=== PATIENT | female | born 1990 | race Caucasian/White ===

== ENCOUNTER 2023-10-03 07:46 | Inpatient (IN) ==
--- NOTE | 2023-10-03 08:43 | History & Physical Report ---
Date of Service October 03, 2023 Assessment & Plan (1) Encounter for induction of labor: (2) Need for rhogam due to Rh negative mother: Plan Will admit patient to L&D for IOL due to post dates VSS FHT cat 1 Pitocin as needed Epidural prn Rh negative mother GBS neg; RI Patient in agreement Admission and Anticipated Discharge Date Admission Date: October 03, 2023 History of Present Illness Chief Complaint: IOL Primary Care Provider: NO PCP Karen is a 33 y/o female with no significant PMHx who is currently at IUP 41 2/7 WGA with an BRAIN 09/24/23 as determined by certain LMP who is here for IOL due to post-dates. (-) contractions (+) movement (-) fluid loss (-) bloody show External FHT and external uterine monitors used * Category 1 tracing * Moderate FHT variability. Had regular appointments since 1st trimester. OB Labs: Blood Type A Negative 02/13/23 Antibody Screen NEGATIVE 07/03/23 Hemoglobin 12.7 g/dl (12.0-16.0) 07/03/23 Hematocrit 37.5 % (37.0-47.0) 07/03/23 Mean Corpuscular Volume 87.6 fL (80.0-100.0) 02/13/23 Platelet Count 223 K/uL (130-400) 02/13/23 Rubella IgG Antibody Immune (Immune) 02/13/23 Rapid Plasma Reagin Nonreactive (Nonreactive) 02/13/23 Hepatitis B Surface Antigen. NON-REACTIVE (NON-REACTIVE) 02/13/23 Hepatitis C Antibody (EIA) NON-REACTIVE (NON-REACTIVE) 02/13/23 HIV (1&2) Ag and Ab Confirmation NON-REACTIVE (NON-REACTIVE) 02/13/23 Glucose 1 Hour 50 gm Load 110 mg/dl (70-130) 07/03/23 Maternal Serum Alpha Fetoprotein 36.2 ng/mL 04/10/23 OB Optional Labs: Chlamydia trachomatis RNA Not Detected (NotDetected) 02/13/23 Neisseria gonorrhoeae RNA Not Detected (NotDetected) 02/13/23 Alpha Fetoprotein Triple Screen SEE NOTE 04/10/23 Labs Reviewed: Carrier screening-negative--mln cfdna-low risk--mln afp neg--akh Allergies Allergy/AdvReac Type Severity Reaction Status Date / Time No Known Allergies Allergy Verified 10/02/23 11:50 Home Medications Medication Instructions Recorded Confirmed Type 21-iron fu-folic acid 1 tab PO 1XD 02/06/23 10/03/23 History [ Complete] Patient History Medical History History of chicken pox Ovarian teratoma COVID-19 (07/2021) Surgical History H/O laparoscopy L ovarian teratoma removal Family History Mother Breast cancer Aunt Breast cancer Denies family history of Ovarian cancer Colorectal cancer Social History Smoking Status: Never smoker Second Hand Exposure: No; Do You Dip or Chew Tobacco: No; Hx Alcohol Use: No Hx Substance Use: No Preferred Language: German Communication Ability: Effective 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 Beliefs That Will Affect Care: None marital status: marital status details: Yvon Vega (34) [phone] Current Living Situation: Spouse Current Living Situation Comment: Pt lives with and cat current occupational status: employed 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 Other Information That Helps Us Care for You: No Feels Safe at Home: Yes Safety Concerns: Feels Safe At This Time Diet Comment: regular diet; milk bothers her and avoids dairy Physical Activity Frequency: 5-6 Times per Week Physical Activity Frequency Comment: [place], HIT Assistive Devices: None BLOOD BANK LABORATORY TECHNICIAN History Last menstrual period: Yes Menstrual reliability: definite Flow: normal Menstrual regularity: regular Monthly: Yes Age at menarche: 11 On control pills at conception: No Date of positive home test: 01/14/23 Menstrual history comments: cycles 25 days Details: last pap 04/19/22 Review of Systems no fever, no chills and no sweats Denies changes in vision. Denies shortness of breath or respiratory difficulty. no chest pain and no palpitations no dysuria no headache(s) Physical Exam Physical Exam: General: Alert, oriented x3. Afebrile. No acute distress. Eyes: Pupils equal and reactive to light bilaterally. Extraocular movement intact bilaterally. Cardiac: Regular rate and rhythm, no murmurs/rubs/gallops. Respiratory: Clear to auscultation bilaterally a/p, no wheezes/rales/rhonchi. No increased work of breathing. Symmetrical chest rise. No respiratory distress. Abdomen: Gravid; FHR baseline of 140-145 bpm; vertex position Pelvic: 50 / -[address] Perodmo Lower Extremities: No lower extremity edema or swelling. No deep calf pain. Bandar's negative bilaterally Results & Data Vital Signs (Past 12 Hours) Vital Signs Temp Pulse Resp BP O2 Del Method 10/03/23 08:19 36.6 C 16 Room Air 10/03/23 07:56 81 126/69 Supervising Physician Co-Signing Physician Notes Resident Physician Supervision Note: I interviewed and examined the patient. Discussed with Dr. Kay and agree with findings and plan as documented in the note. Any exceptions or clarifications are listed here: 33yo @ 41 08/23, Rh neg, AMA. IOL for postdates. Taylor bulb placed this morning - 35cc sterile water, tolerated well. Will start pitocin. Reviewed plan. Documented By: Leah Perdomo,
[2023-10-03] MEDS ORDERED: LIDOCAINE 1% LOCAL 20 ML VIAL INFIL PRN (09:21)
[2023-10-03] MEDS ORDERED: OXYTOCIN 30 UNITS/NSS 30 UNITS/500 ML BAG IV PRN ×2 (09:21→22:22)
[2023-10-03] MEDS: LACTATED RINGER'S 1,000 ML IV PRN (09:55)
[2023-10-03] MEDS: OXYTOCIN 30 UNITS/NSS 30 UNITS/500 ML BAG IV PRN (10:07)
[2023-10-03 10:11] LABS: Hematocrit (blood only) 38.7 % (37.0-47.0); Hemoglobin 13.4 g/dl (12.0-16.0); Mean Corpuscular Hemoglobin 29.8 pg (25.0-34.0); Mean Corpuscular Hgb Conc 34.6 g/dL (32.0-36.0); Mean Platelet Volume 11.4 fL (9.4-12.4); Platelet Count 142 K/uL (130-400); RDW Coefficient of Variation 13.2 % (11.5-14.5); RDW Standard Deviation 40.6 fL (36.4-46.3); White Blood Count 9.18 K/ul (4.8-10.8)
[2023-10-03] MEDS ORDERED: fentaNYL citrate PF 100 MCG/2 ML VIAL ONE (16:27)
[2023-10-03] MEDS ORDERED: SODIUM CHLORIDE 0.9% PF INJ 10 ML VIAL ONE (16:28)
--- NOTE | 2023-10-03 16:36 | Anesthesiology Consultation ---
Date of Service October 03, 2023 Assessment & Plan Chart Review Chart Review: Acceptable Risk for Labor Epidural Consults Requested none ASA ASA2 Proposed Anesthesia Anesthesia Type: Labor Epidural Risk / Benefits Reviewed With: PT / POA / Parent / Guardian, Accepts Plan and Informed Consent Obtained History Height/Weight Height: 5 ft 4 in Weight: 73.028 kg Allergies Allergy/AdvReac Type Severity Reaction Status Date / Time No Known Allergies Allergy Verified 10/02/23 11:50 Medications Home Medications Medication Instructions Recorded Confirmed Last Taken 21-iron fu-folic acid 1 tab PO 1XD 02/06/23 10/03/23 10/01/23 07:00 [ Complete] Active Medications Generic Name Dose Route Start Last Admin Trade Name Freq PRN Reason Stop Dose Admin Oxytocin 30 units in 500 mls @ 17 mls/hr 10/03/23 09:21 10/03/23 15:43 Pitocin 30 Units/Nss IV 10/05/23 09:20 1.02 units/hr .Q24H PRN 17 mls/hr Labor Induction/Augmentation Titration Protocol 1.02 UNITS/HR Lactated Ringer's 1,000 mls @ 125 mls/hr 10/03/23 09:21 10/03/23 16:32 Lr IV 10/05/23 09:20 999 mls/hr .Q8H PRN Administration L&D Protocol Protocol Past Medical History Medical History History of chicken pox Ovarian teratoma COVID-19 (07/2021) Exercise / Class Metabolic Activity II 4-5 Yardwork/Stairs/Walk up hill Past Family History Family History Mother Breast cancer Aunt Breast cancer paternal aunt x 2 Denies family history of Ovarian cancer Colorectal cancer Past Surgical History Surgical History H/O laparoscopy L ovarian teratoma removal Past Anesthesia History No Hx of Anesthesia Complications and No Family Hx of Anesthesia Complications History of PONV No Hx of PONV and No Hx of Motion Sickness Social History Smoking Status: Never smoker Do You Dip or Chew Tobacco: No Hx Alcohol Use: No Hx Substance Use: No substance use type: does not use Physical Exam Vital Signs Last Vital Signs Temp 98.1 F 10/03/23 15:20 Pulse 84 10/03/23 15:56 Resp 18 10/03/23 16:00 BP 122/80 10/03/23 15:56 O2 Del Method Room Air 10/03/23 08:19 ENMT Mouth: no dentition abnormality Thyromental Distance: > or= 3.5 Finger Breadths Mallampati Class: II Neck normal visual inspection Respiratory normal respiratory effort Auscultation: lungs clear to auscultation bilaterally Cardiovascular Rate/Rhythm: regular rate and regular rhythm Testing Laboratory Results 10/03/23 09:40
[2023-10-03] MEDS: fentANYL 2 MCG/ML BUPIVacaine 0.125%-NSS 100ML BAG ONE (16:56)
[2023-10-03] MEDS ORDERED: ePHEDrine sulfate 50 MG/ML AMP IV PRN (16:57)
[2023-10-03] MEDS ORDERED: ONDANSETRON INJ 2 MG/ML 2 ML VIAL IV PRN (16:57)
[2023-10-03] MEDS ORDERED: fentANYL 2 MCG/ML BUPIVacaine 0.125%-NSS 100ML BAG EPI PRN (16:57)
[2023-10-03] MEDS ORDERED: NALOXONE HCL 0.4 MG/1 ML VIAL/CARP IV PRN (16:57)
[2023-10-03] MEDS ORDERED: ROPIVACAINE 0.5% PF 5 MG/ML 20 ML VIAL EPI PRN (16:57)
[2023-10-03] MEDS ORDERED: NALOXONE HCL 1 MG in SODIUM CHLORIDE 0.9% 1,000 ML IV PRN (16:57)
[2023-10-03] MEDS ORDERED: LIDOCAINE 2% MPF LOCAL 5 ML VIAL EPI PRN (16:57)
[2023-10-03] MEDS ORDERED: diphenhydrAMINE 50 MG/ML VIAL IV PRN (16:57)
[2023-10-03] MEDS ORDERED: SODIUM CHLORIDE 0.9% PF INJ 10 ML VIAL EPI PRN (16:57)
[2023-10-03] MEDS ORDERED: NALBUPHINE HCL 5 MG in SYRINGE 0 ML IV PRN (16:57)
[2023-10-03] MEDS: LIDOCAINE 2%/EPINEPHRINE 1:200,000 20 ML PF ONE (17:00)
[2023-10-03] MEDS: BUPIVACAINE 0.25% PF 30 ML VIAL ONE (17:00)
[2023-10-03] MEDS: LIDOCAINE 2%/EPINEPHRINE 1:200,000 20 ML PF EPI STA (17:23)
[2023-10-03] MEDS: BUPIVACAINE 0.25% PF 30 ML VIAL EPI STA (17:23)
[2023-10-03] MEDS: SODIUM CHLORIDE 0.9% PF INJ 10 ML VIAL EPI STA (17:23)
[2023-10-03] MEDS: fentaNYL citrate PF 100 MCG/2 ML VIAL EPI STA (17:23)
[2023-10-03] MEDS ORDERED: NURSING L&D Epidural Breakthrough Pain Update ONE (17:43)
[2023-10-03] MEDS: fentaNYL citrate PF 100 MCG/2 ML VIAL EPI PRN (18:28)
[2023-10-03] MEDS: BUPIVACAINE 0.25% PF 30 ML VIAL EPI PRN (18:30)
--- NOTE | 2023-10-03 18:43 | Anesthesia Procedure Note ---
Date of Service October 03, 2023 Anesthesia Epidural Re-Dose Vital Signs Temp Pulse Resp BP Pulse Ox O2 Del Method 98.2 F 85 18 125/71 100 Room Air 10/03/23 17:00 10/03/23 18:40 10/03/23 18:30 10/03/23 18:39 10/03/23 18:40 10/03/23 08:19 Notes Pain Intensity: 7 Dilatation (cm): 10.0 Effacement (%): 100 Called by nursing to evaluate epidural as the patient is having increased pain. The epidural was re-dosed with the following medications after negative aspiration of the epidural catheter for CSF/HEME. 3mL of 0.25% Bupivacaine and 75 mcg fentanyl After Epidural Re-Dose Mental Status: alert / awake / arousable Pain: improving with treatment Airway Patency, RR, SpO2: stable & adequate BP & HR: stable & adequate
--- NOTE | 2023-10-03 20:45 | Labor Progress Brief Note ---
Date of Service October 03, 2023 Subjective Comfortable with epidural. Pushing in [id number]. FHT was Cat 1, then had a deceleration that was relieved by repositioning into hands/knees, and pitocin stopped and O2 applied. [place] Q 3-4 Continue pushing. recovery successful, will plan to restart pitocin when able. Assessment & Plan Admission and Anticipated Discharge Date Admission Date: October 03, 2023 Results & Data Vital Signs (Past 12 Hours) Vital Signs Temp Pulse Resp BP Pulse Ox O2 Del Method 10/03/23 20:40 97 H 100 10/03/23 20:35 94 H 100 10/03/23 20:30 85 99 10/03/23 20:29 105 H 92 10/03/23 20:25 107 H 96 10/03/23 20:24 69 111/71 10/03/23 20:20 93 H 100 10/03/23 20:15 98 H 99 10/03/23 20:10 94 H 100 10/03/23 20:07 91 H 108/68 10/03/23 20:05 83 100 10/03/23 20:00 84 18 100 10/03/23 19:55 89 98 10/03/23 19:53 83 106/63 10/03/23 19:52 90 88 L 10/03/23 19:50 89 99 10/03/23 19:45 94 H 99 10/03/23 19:40 92 H 100 10/03/23 19:35 36.6 C 87 99 10/03/23 19:30 95 H 18 100 10/03/23 19:25 81 100 10/03/23 19:23 87 117/60 10/03/23 19:20 78 99 10/03/23 19:15 89 99 10/03/23 19:10 Room Air 10/03/23 19:10 84 100 10/03/23 19:08 20 10/03/23 19:08 20 10/03/23 19:07 84 122/55 L 10/03/23 19:05 100 10/03/23 19:05 95 H 10/03/23 19:05 160 H 122/63 10/03/23 19:03 90 116/61 10/03/23 19:01 93 H 104/69 91 10/03/23 19:00 101 H 18 98 10/03/23 18:55 89 168/61 H 98 10/03/23 18:53 83 106/73 10/03/23 18:51 87 114/65 10/03/23 18:50 79 124/60 100 10/03/23 18:47 95 H 88 L 10/03/23 18:45 73 120/64 100 10/03/23 18:43 81 124/71 10/03/23 18:41 85 124/94 10/03/23 18:40 85 100 10/03/23 18:39 76 125/71 10/03/23 18:37 77 125/78 10/03/23 18:35 98 10/03/23 18:35 76 10/03/23 18:35 82 129/86 10/03/23 18:33 65 121/78 10/03/23 18:31 83 130/77 10/03/23 18:30 77 18 98 10/03/23 18:26 84 144/85 H 10/03/23 18:25 77 99 10/03/23 18:20 76 98 10/03/23 18:15 75 99 10/03/23 18:13 88 125/78 10/03/23 18:10 79 100 10/03/23 18:05 75 98 10/03/23 18:00 80 20 99 10/03/23 17:56 97 H 143/95 H 10/03/23 17:55 91 H 99 10/03/23 17:51 87 135/86 10/03/23 17:50 99 H 99 10/03/23 17:46 97 H 138/90 10/03/23 17:45 93 H 98 10/03/23 17:42 83 146/98 H 10/03/23 17:40 87 98 10/03/23 17:38 85 161/67 H 10/03/23 17:36 84 193/76 H 10/03/23 17:35 90 99 10/03/23 17:30 20 10/03/23 17:30 20 10/03/23 17:30 92 H 20 100 10/03/23 17:25 80 100 10/03/23 17:23 75 157/92 H 10/03/23 17:21 86 141/82 H 10/03/23 17:20 98 10/03/23 17:20 83 10/03/23 17:20 82 134/82 10/03/23 17:18 81 144/82 H 10/03/23 17:15 80 119/65 99 10/03/23 17:13 77 116/63 10/03/23 17:12 83 126/75 10/03/23 17:10 85 100 10/03/23 17:09 84 144/71 H 10/03/23 17:07 73 145/67 H 10/03/23 17:05 70 146/67 H 100 10/03/23 17:04 76 133/61 10/03/23 17:01 83 149/81 H 10/03/23 17:00 36.8 C 81 18 99 10/03/23 16:59 82 137/86 10/03/23 16:57 91 H 144/90 H 10/03/23 16:55 93 H 150/94 H 100 10/03/23 16:53 100 H 146/83 H 10/03/23 16:51 96 H 142/83 H 10/03/23 16:50 100 10/03/23 16:50 83 10/03/23 16:50 88 132/77 10/03/23 16:47 75 131/80 10/03/23 16:45 74 131/76 99 10/03/23 16:43 82 129/88 10/03/23 16:41 79 121/88 10/03/23 16:40 84 100 10/03/23 16:39 71 115/84 10/03/23 16:35 83 100 10/03/23 16:00 18 10/03/23 16:00 18 10/03/23 15:56 84 122/80 10/03/23 15:20 16 10/03/23 15:20 36.7 C 16 10/03/23 15:00 18 10/03/23 15:00 18 10/03/23 14:58 78 120/83 10/03/23 14:30 16 10/03/23 14:30 16 10/03/23 14:00 18 10/03/23 14:00 18 10/03/23 13:57 70 111/75 10/03/23 13:30 18 10/03/23 13:30 18 10/03/23 12:57 74 123/82 10/03/23 12:30 16 10/03/23 12:30 16 10/03/23 12:01 62 117/72 10/03/23 12:00 18 10/03/23 12:00 18 10/03/23 11:13 18 10/03/23 11:13 36.7 C 18 10/03/23 11:00 18 10/03/23 11:00 18 10/03/23 10:57 74 121/82 10/03/23 10:30 16 10/03/23 10:30 16 10/03/23 10:00 18 10/03/23 10:00 18 10/03/23 09:56 59 L 117/78 10/03/23 09:30 18 10/03/23 09:30 18 10/03/23 08:57 65 129/62 Coding Level of Care Code None
--- NOTE | 2023-10-03 22:19 | Delivery Summary ---
Vaginal Delivery Summary Date of Service October 03, 2023 Vaginal Delivery Summary and 3rd Degree LAC Vaginal Delivery Summary: Pre-delivery diagnoses: 33yo @ 41 2/7, IOL postdates, AMA, Rh negative Post-delivery diagnoses: same Procedure: spontaneous vaginal delivery Surgeon: Leah Perdomo DO Complications: none Findings: Viable male . Apgars: 8/9 . Weight pending, please see nursery records Estimated blood loss: 500ml Description of delivery: The patient progressed to complete with epidural anesthesia. She then began to push. She spontaneously vaginally delivered a viable from the cephalic presentation. The head delivered in FAIZA position. Nuchal x 1, easily reduced. The anterior shoulder delivered, followed by the posterior shoulder, followed by the body. The baby was placed on mother's abdomen and a spontaneous cry was heard. Delayed cord clamping was employed, and the cord was doubly clamped and cut. Cord blood was obtained. During active management of the 3rd stage of labor, the umbilical cord avulsed. Manual extraction of the placenta in pieces, sweep was performed with Banjo curette and 1g TXA was given. Re-exam of uterine cavity revealed no remaining placental fragments. The uterus and vagina were swept of clots and debris. IV pitocin was given. The uterus became firm. The cervix, vagina, and perineum were inspected and a 3rd degree perineal laceration was noted and repaired. The anal sphincter was intact, but the fascia was - this was reapproximated with 3-0 Chromic. The remaining repair was completed with 3-0 Vicryl in standard fashion. Excellent hemostasis was observed. The mother and baby are recovering in stable and good condition in the room. Sponge, needle and instrument counts were correct x 2. Leah Perdomo DO [facility] Vaginal Delivery Charge Vaginal Delivery Codes: 70010 global code for the antepartum, delivery, and post- Delivery Type Details: and 3rd Degree LAC
[2023-10-03] MEDS ORDERED: HYDROCORTISONE ACETATE 25 MG SUPP PR PRN (22:22)
[2023-10-03] MEDS: TRANEXAMIC ACID / 0.7% NACL 1,000 MG/100 ML BAG IV STA (22:44)
[2023-10-03] MEDS: BENZOCAINE 20% SPRY 85 APPLN/85 GM CAN EXT PRN (22:44)
[2023-10-03] MEDS: IBUPROFEN 600 MG TAB PO PRN (22:45)
[2023-10-03] MEDS: ceFAZolin 1000MG 1,000 MG/7.5 ML SYR IV SCH (22:45)
[2023-10-03] MEDS: DIPHTHER/TETAN/PERTUS Vaccine (Tdap, Adol/Adult) 0.5mL IM ONE (23:03)
[2023-10-03] MEDS: ePHEDrine sulfate 50 MG/ML AMP ONE (23:03)
--- NOTE | 2023-10-03 23:34 | Anesthesia Procedure Note ---
Date of Service October 03, 2023 Anesthesia Post Epidural Note Vital Signs Vital Signs: Temp Pulse Resp BP Pulse Ox O2 Del Method 97.9 F 85 18 102/64 98 Room Air 10/03/23 19:35 10/03/23 23:22 10/03/23 22:20 10/03/23 23:22 10/03/23 22:15 10/03/23 19:10 Pain Intensity Abdomen: Pain Intensity: 0 Notes Mental Status: alert / awake / arousable and participated in evaluation Nausea / Vomiting: adequately controlled Pain: adequately controlled Airway Patency, RR, SpO2: stable & adequate BP & HR: stable & adequate Hydration State: stable & adequate Neuraxial Anesthesia: was administered and sensory block is resolving Anesthetic Complications: no major complications apparent and Pt Satisfied with anesthetic care Epidural: Removed without complications and With tip intact
--- NOTE | 2023-10-04 07:01 | Obstetrical Progress Note ---
Date of Service <Maty Kay MD - Last Filed: 10/04/23 07:01> October 04, 2023 Assessment & Plan <Maty Kay MD - Last Filed: 10/04/23 07:01> (1) Need for rhogam due to Rh negative mother: (2) Encounter for assessment: Plan Patient with the above mentioned history and findings was evaluated at bedside and found awake, alert, oriented in all spheres, afebrile, and in no acute distress. Vital signs showed no fever and blood pressures remained stable. Her blood type is A negative. Will consider Rhogam administration depending on baby's BT. Most recent hemoglobin is adequate at 13.4 g/dL. She is GBS negative and RI. Overall, patient is doing well clinically and meeting the desired milestone for her course. Will continue routine pp care and complete 24 hours of Ancef due to manual extraction. All questions were answered. <Leah Perdomo DO - Last Filed: 10/04/23 07:40> (1) Need for rhogam due to Rh negative mother: (2) Encounter for assessment: Subjective <Maty Kay MD - Last Filed: 10/04/23 07:01> Karen is a 33 y/o female who is now PPD # 1 following at 41 2/7. Reports feeling well overall this morning. Refers moderate abdominal cramping & 3/10 pain well managed on analgesics. Has been feeling pain in the site of her stitches, mainly after sitting for a long time but is relieved after lying on her side for a while. Voiding spontaneously. Tolerating meals overnight and able to ambulate some. Has been passing gas but no bm yet. Some persistent lochia with some improvement this morning. without difficulty. Constitutional: no fever, no chills or no sweats Denies shortness of breath or difficulty breathing Cardiovascular: no chest pain or no palpitations Breast: no breast pain Genitourinary (female): no dysuria Neurologic: no headache(s) Denies changes in vision Physical Exam <Maty Kay MD - Last Filed: 10/04/23 07:01> General: Alert. Oriented to person, time, and place. Afebrile. No acute distress. Eyes: pupils equal and reactive to light bilaterally, extraocular movements intact. Cardiac: Regular rate and rhythm, no murmurs/rubs/gallops. Respiratory: Clear to auscultation bilaterally a/p, no wheezes/rales/rhonchi. No increased work of breathing. Symmetrical chest rise. No respiratory distress. Abdomen: Soft, nontender, nondistended. Bowel sounds present. Uterus: Uterine fundus firm, tender, and palpable at umbilicus. Lower Extremities: No lower extremity edema or swelling. No deep calf pain. Bandar's negative bilaterally. Psych: Euthymic affect. Mood and affect congruence. Regular speech rate and content. Results & Data <Maty Kay MD - Last Filed: 10/04/23 07:01> Vital Signs (Past 12 Hours) Vital Signs Temp Pulse Pulse Resp BP BP Pulse Ox 10/04/23 03:00 36.5 C 73 16 121/85 10/04/23 00:45 36.5 C 102 H 18 127/84 10/04/23 00:26 81 120/69 10/04/23 00:22 84 194/103 H 10/04/23 00:05 18 10/03/23 23:37 90 107/62 10/03/23 23:35 18 10/03/23 23:22 85 102/64 10/03/23 23:07 77 108/63 10/03/23 23:05 16 10/03/23 22:52 92 H 111/79 10/03/23 22:50 16 10/03/23 22:37 82 108/75 10/03/23 22:35 18 10/03/23 22:22 91 H 105/68 10/03/23 22:20 18 10/03/23 22:15 98 10/03/23 22:15 101 H 10/03/23 22:15 103 H 92 10/03/23 22:10 86 99 10/03/23 22:06 95 H 110/62 10/03/23 22:05 18 10/03/23 22:05 89 99 10/03/23 22:01 85 109/69 10/03/23 22:00 93 H 98 10/03/23 21:55 92 H 98 10/03/23 21:50 96 H 99 10/03/23 21:45 101 H 99 10/03/23 21:40 97 H 98 10/03/23 21:35 126 H 99 03/19/24 21:34 20 10/03/23 21:34 20 10/03/23 21:31 90 111/67 10/03/23 21:30 89 99 10/03/23 21:25 102 H 99 10/03/23 21:20 122 H 99 10/03/23 21:15 87 99 10/03/23 21:10 111 H 99 10/03/23 21:09 103 H 95/67 L 10/03/23 21:05 101 H 98 10/03/23 21:00 18 10/03/23 21:00 18 10/03/23 21:00 87 18 99 10/03/23 20:55 91 H 121/66 99 10/03/23 20:50 97 H 98 10/03/23 20:45 103 H 99 10/03/23 20:40 97 H 100 10/03/23 20:35 94 H 100 10/03/23 20:30 85 18 99 10/03/23 20:29 105 H 92 10/03/23 20:25 107 H 96 10/03/23 20:24 69 111/71 10/03/23 20:20 93 H 100 10/03/23 20:15 98 H 99 10/03/23 20:10 94 H 100 10/03/23 20:07 91 H 108/68 10/03/23 20:05 83 100 10/03/23 20:00 84 18 100 10/03/23 19:55 89 98 10/03/23 19:53 83 106/63 10/03/23 19:52 90 88 L 10/03/23 19:50 89 99 10/03/23 19:45 94 H 99 10/03/23 19:40 92 H 100 10/03/23 19:35 36.6 C 87 99 10/03/23 19:30 95 H 18 100 10/03/23 19:25 81 100 10/03/23 19:23 87 117/60 10/03/23 19:20 78 99 10/03/23 19:15 89 99 10/03/23 19:10 10/03/23 19:10 84 100 10/03/23 19:08 20 10/03/23 19:08 20 10/03/23 19:07 84 122/55 L 10/03/23 19:05 100 10/03/23 19:05 95 H 10/03/23 19:05 160 H 122/63 10/03/23 19:03 90 116/61 10/03/23 19:01 93 H 104/69 91 10/03/23 19:00 101 H 18 98 O2 Del Method 10/04/23 03:00 Room Air 10/04/23 00:45 Room Air 10/04/23 00:26 10/04/23 00:22 10/04/23 00:05 10/03/23 23:37 10/03/23 23:35 10/03/23 23:22 10/03/23 23:07 10/03/23 23:05 10/03/23 22:52 10/03/23 22:50 10/03/23 22:37 10/03/23 22:35 10/03/23 22:22 10/03/23 22:20 10/03/23 22:15 10/03/23 22:15 10/03/23 22:15 10/03/23 22:10 10/03/23 22:06 10/03/23 22:05 10/03/23 22:05 10/03/23 22:01 10/03/23 22:00 10/03/23 21:55 10/03/23 21:50 10/03/23 21:45 10/03/23 21:40 10/03/23 21:35 10/03/23 21:34 10/03/23 21:34 10/03/23 21:31 10/03/23 21:30 10/03/23 21:25 10/03/23 21:20 10/03/23 21:15 10/03/23 21:10 10/03/23 21:09 10/03/23 21:05 10/03/23 21:00 10/03/23 21:00 10/03/23 21:00 10/03/23 20:55 10/03/23 20:50 10/03/23 20:45 10/03/23 20:40 10/03/23 20:35 10/03/23 20:30 10/03/23 20:29 10/03/23 20:25 10/03/23 20:24 10/03/23 20:20 10/03/23 20:15 10/03/23 20:10 10/03/23 20:07 10/03/23 20:05 10/03/23 20:00 10/03/23 19:55 10/03/23 19:53 10/03/23 19:52 10/03/23 19:50 10/03/23 19:45 10/03/23 19:40 10/03/23 19:35 10/03/23 19:30 10/03/23 19:25 10/03/23 19:23 10/03/23 19:20 10/03/23 19:15 10/03/23 19:10 Room Air 10/03/23 19:10 10/03/23 19:08 10/03/23 19:08 10/03/23 19:07 10/03/23 19:05 10/03/23 19:05 10/03/23 19:05 10/03/23 19:03 10/03/23 19:01 10/03/23 19:00 Supervising Physician <Leah Perdomo DO - Last Filed: 10/04/23 07:40> Co-Signing Physician Notes Resident Physician Supervision Note: I was present with Dr. Kay during the history and exam. I discussed the case with the resident and agree with the findings and plan as documented in the note. Any exceptions or clarifications are listed here: PPD#1 doing well. Anticipate DC home tomorrow. Routine care. Documented By: Leah Perdomo DO
[2023-10-04 08:14] LABS: Hematocrit (blood only) 31.8 % (37.0-47.0)
[2023-10-04] MEDS: PRENATAL VITAMIN 1 TAB PO SCH (08:52)
[2023-10-04] MEDS: DOCUSATE SODIUM 100 MG CAP PO SCH (08:52)
[2023-10-04] MEDS: ACETAMINOPHEN 325 MG TAB PO PRN (17:02)
[2023-10-04] MEDS: bisacodyL 5 MG TABEC PO SCH (19:55)
[2023-10-05] MEDS ORDERED: bisacodyL 10 MG SUPP PR PRN
--- NOTE | 2023-10-05 06:25 | Obstetrical Progress Note ---
Date of Service <Maty Kay MD - Last Filed: 10/05/23 06:25> October 05, 2023 Assessment & Plan <Maty Kay MD - Last Filed: 10/05/23 06:25> (1) Need for rhogam due to Rh negative mother: (2) Encounter for assessment: Plan Patient with the above mentioned history and findings was evaluated at bedside and found awake, alert, oriented in all spheres, afebrile, and in no acute distress. Vital signs showed no fever and blood pressures remained stable. Her blood type is A negative and baby's BT is rh positive. She was given Rhogam yesterday. Most recent hemoglobin is adequate at 11.0 g/dL. She is GBS negative and RI. She is s/p 24 hours of Ancef due to manual extraction of placenta. Overall, patient is doing well clinically and meeting the desired milestone for her course. Therefore, will discharge patient today. Patient was counselled on discharge instructions. She is to make an appointment with her OB for 6 weeks after discharge for follow up evaluation. All questions were answered. <Rosenda Gallardo MD - Last Filed: 10/05/23 08:12> (1) Need for rhogam due to Rh negative mother: (2) Encounter for assessment: Subjective <Maty Kay MD - Last Filed: 10/05/23 06:25> Karen is a 33 y/o female who is now PPD # 2 following at 41 2/7. Reports feeling well overall this morning. Refers moderate abdominal cramping & 3/10 pain well managed on analgesics. Still feeling pain in the site of her stitches, as well as her bottom which she states gets better after standing and walking. Voiding spontaneously. Tolerating meals overnight and able to ambulate some. Has been passing gas but no bm yet. Some persistent lochia with some improvement this morning. . Constitutional: no fever, no chills or no sweats Denies shortness of breath or difficulty breathing Cardiovascular: no chest pain or no palpitations Breast: no breast pain Genitourinary (female): no dysuria Neurologic: no headache(s) Denies changes in vision Physical Exam <Maty Kay MD - Last Filed: 10/05/23 06:25> General: Alert. Oriented to person, time, and place. Afebrile. No acute distress. Eyes: pupils equal and reactive to light bilaterally, extraocular movements intact. Cardiac: Regular rate and rhythm, no murmurs/rubs/gallops. Respiratory: Clear to auscultation bilaterally a/p, no wheezes/rales/rhonchi. No increased work of breathing. Symmetrical chest rise. No respiratory distress. Abdomen: Soft, nontender, nondistended. Bowel sounds present. Uterus: Uterine fundus firm, tender, and palpable at umbilicus. Lower Extremities: No lower extremity edema or swelling. No deep calf pain. Bandar's negative bilaterally. Psych: Euthymic affect. Mood and affect congruence. Regular speech rate and content. Results & Data <Maty Kay MD - Last Filed: 10/05/23 06:25> Vital Signs (Past 12 Hours) Vital Signs Temp Pulse Resp BP O2 Del Method 10/04/23 23:02 36.4 C L 72 14 107/69 Room Air 10/04/23 19:45 36.6 C 80 16 111/72 Room Air Supervising Physician <Rosenda Gallardo MD - Last Filed: 10/05/23 08:12> Co-Signing Physician Notes Resident Physician Supervision Note: I interviewed and examined the patient. Discussed with Dr. Kay and agree with findings and plan as documented in the note. Any exceptions or clarifications are listed here: [ ] Documented By: Rosenda Gallardo MD, FACOG
== END 2023-10-05 12:45 | disposition home or self-care (01) | DRG 768 ==
LOC: 4S1 07:46 → 4E2 10-04 01:03